=== PATIENT | male | born 1950 | race Hispanic/Latino ===

== ENCOUNTER 2017-05-11 14:17 | Inpatient (IN) | payer OTHER ==
[~2017-05-11] VITALS: Ht 167.6 cm; Wt 91.7 kg
[2017-05-11] MEDS ORDERED: ACETAMINOPHEN-CODEINE ELIXIR 5 ML UDCUP ONE (14:40)
[2017-05-11 14:56] LABS: BASOPHILS % (AUTO) 0.6 % (0.0-5.0); EOSINOPHILS % (AUTO) 0.3 % (0.0-8.0); HEMATOCRIT 46.8 % (42-54); LYMPHOCYTES % (AUTO) 15.9 % (21.0-51.0); MEAN CORPUSCULAR HEMOGLOBIN 31.2 pg (27.0-33.0); MEAN CORPUSCULAR HGB CONC 34.5 g/dL (32.0-36.0); MEAN CORPUSCULAR VOLUME 90.5 fL (79-99); MONOCYTES % (AUTO) 8.5 % (3.0-13.0); NEUTROPHILS % (AUTO) 74.7 % (40.0-77.0); PLATELET COUNT (AUTO) 289 K/uL (130-400); RED BLOOD CELL COUNT(AUTO) 5.17 MIL/uL (4.50-6.20); RED CELL DISTRIBUTION WIDTH 13.3 % (11.0-15.5); WHITE BLOOD COUNT (AUTO) 15.7 K/uL (4.8-10.8)
[2017-05-11 15:06] LABS: CREATININE 0.9 mg/dL (0.5-1.5); POTASSIUM 3.9 mmol/L (3.5-5.1)
[2017-05-11 15:09] LABS: INR 1.09 (0.85-1.15); PARTIAL THROMBOPLASTIN TIME 31.3 SEC (26.3-35.5); PROTHROMBIN TIME 11.4 SEC (9.6-11.6)
[2017-05-11 15:11] LABS: ALBUMIN 3.7 g/dL (3.5-5.0); BILIRUBIN,TOTAL 0.9 mg/dL (0.2-1.0)
[2017-05-11] MEDS ORDERED: ONDANSETRON ODT 4 MG TAB ONE (15:56)
[2017-05-11 16:34] LABS: RAPID GROUP A STREP POSITIVE (NEGATIVE)
[2017-05-11] MEDS ORDERED: MORPHINE SULFATE 2 MG/ML 1ML SYG IV PRN (19:15)
[2017-05-11] MEDS ORDERED: ACETAMINOPHEN 325 MG TAB PO PRN (19:15)
[2017-05-11] MEDS ORDERED: ONDANSETRON HCL 4 MG/2 ML VIAL IVP PRN (19:15)
[2017-05-11] MEDS ORDERED: CEFTRIAXONE SODIUM 1 GM ONE (19:19)
[2017-05-11] MEDS ORDERED: MORPHINE SULFATE 4 MG/1ML SYG ONE (20:10)
[2017-05-11] MEDS: FAMOTIDINE 20MG TAB 20 MG TAB PO SCH (21:00)
[2017-05-12] MEDS ORDERED: MORPHINE SULFATE 4 MG/1ML SYG ONE (06:16)
[2017-05-12] MEDS ORDERED: PANTOPRAZOLE SODIUM 40 MG TABLET.DR PO ONE (08:31)
[2017-05-12] MEDS ORDERED: PANTOPRAZOLE SODIUM 40 MG TABLET.DR PO SCH (09:00)
[2017-05-12] MEDS: FAMOTIDINE 20MG TAB 20 MG TAB PO SCH (09:00)
[2017-05-12 13:43] VITALS: BP 139/66
[2017-05-12 13:46] LABS: HEMATOCRIT 48.8 % (42-54); MEAN CORPUSCULAR HEMOGLOBIN 30.9 pg (27.0-33.0); MEAN CORPUSCULAR HGB CONC 33.9 g/dL (32.0-36.0); PLATELET COUNT (AUTO) 288 K/uL (130-400); RED BLOOD CELL COUNT(AUTO) 5.37 MIL/uL (4.50-6.20); RED CELL DISTRIBUTION WIDTH 13.1 % (11.0-15.5); WHITE BLOOD COUNT (AUTO) 14.6 K/uL (4.8-10.8)
[2017-05-12] MEDS ORDERED: ACET-2247 PO (13:59)
[2017-05-12 14:12] LABS: CREATININE 0.8 mg/dL (0.5-1.5); POTASSIUM 4.1 mmol/L (3.5-5.1)
[2017-05-12] MEDS ORDERED: TRAM50TA2 PO (14:54)
== END 2017-05-12 18:40 | disposition home or self-care (01) | DRG 65 ==
LOC: EDH 14:17 → EDHIP 16:50 → 2DH 05-12 13:39
PROVIDERS: ADMIT Family Medicine; ATTEND Family Medicine
DX: I62.9 Nontraumatic intracranial hemorrhage, unspecified (principal); E87.1 Hypo-osmolality and hyponatremia; E66.9 Obesity, unspecified; S09.90XA Unspecified injury of head, initial encounter; W19.XXXA Unspecified fall, initial encounter; I10 Essential (primary) hypertension; Z68.32 Body mass index [BMI] 32.0-32.9, adult; Y93.89 Activity, other specified; Y92.89 Other specified places as the place of occurrence of the external cause; Y99.8 Other external cause status
CPT/HCPCS: 36415; 70450; 80048; 80053; 83605; 85025; 85027; 85610; 85730; 87804; 87880; 93005; 99291; J0696; J2270

== ENCOUNTER → 2017-05-18 | Outpatient (CLI) | payer OTHER ==
[~2017-05-18] MED LIST: ACET-2247 PO; TRAM50TA2 PO
== END | disposition home or self-care (01) ==
LOC: OIH 14:51
PROVIDERS: ATTEND Family Medicine
DX: S06.339A Contusion and laceration of cerebrum, unspecified, with loss of consciousness of unspecified duration, initial encounter (principal); X58.XXXA Exposure to other specified factors, initial encounter; Y93.89 Activity, other specified; Y92.89 Other specified places as the place of occurrence of the external cause; Y99.8 Other external cause status
CPT/HCPCS: 70450

== ENCOUNTER → 2017-06-08 | Outpatient (CLI) | payer OTHER | END | disposition home or self-care (01) | LOC: RAH 14:50 | PROVIDERS: ATTEND Family Medicine | DX: S06.339A Contusion and laceration of cerebrum, unspecified, with loss of consciousness of unspecified duration, initial encounter (principal); X58.XXXA Exposure to other specified factors, initial encounter; Y93.89 Activity, other specified; Y92.89 Other specified places as the place of occurrence of the external cause; Y99.8 Other external cause status | CPT/HCPCS: 70450 ==